=== PATIENT | female | born 1940 | race Caucasian/White ===

== ENCOUNTER 2021-01-03 12:36 | Emergency (ER) | payer MEDICARE ==
[~2021-01-03 12:36] MED LIST: CIPRO HC OTIC S10 ML EARRT; COLACE 100MG C100 MG PO; ECOTRIN81 MG PO; FENOFIBRATE160 MG PO; FEOSOL325 MG PO; GABAPENTIN300 MG PO; GLUCOPHAGE1000 MG PO; HAIR, SKIN & N1 EACH PO; IMDUR ER TAB 6060 MG PO; JANUVIA100 MG PO; NORVASC10 MG PO; OMEPRAZOLE20 M1 PO; TOPROL XL100 MG PO; TRESIBA100 UNIT/1 SQ; ULTRAM50 MG PO; ZYRTEC10 MG PO
[2021-01-03 14:39] LABS: HEMOGLOBIN 15.1 gm/dl (12.3-15.3); RED BLOOD COUNT 4.81 M/UL (4.00-5.10); WHITE BLOOD COUNT 9.5 K/UL (4.5-11.0)
[2021-01-03 16:14] LABS: BUN/CREATININE RATIO 16 (0-10)
[2021-01-03] MEDS ORDERED: COLACE100 MG PO (19:00)
[2021-01-03] MEDS ORDERED: ULTRAM50 MG PO (19:00)
[2021-01-07] MEDS ORDERED: BENTYL 20MG TAB20 MG PO (03:24)
[2021-01-07] MEDS ORDERED: LEVOTHYROXINE150 MCG PO (03:31)
[2021-01-07] MEDS ORDERED: HYZAAR 100-251 EACH PO (07:37)
[2021-01-07] MEDS ORDERED: LIPITOR20 MG PO (07:43)
[2021-01-07] MEDS ORDERED: VITAMIN D325 MCG PO (07:49)
[2021-01-07] MEDS ORDERED: HYDRALAZINE HCL25 MG PO ×2 (08:01→15:05)
== END 2021-01-03 19:45 | disposition home or self-care (01) ==
LOC: ER1 12:36
PROVIDERS: Physician Assistant Medical
DX: R10.9 Unspecified abdominal pain (principal); R11.2 Nausea with vomiting, unspecified; M54.9 Dorsalgia, unspecified; E11.9 Type 2 diabetes mellitus without complications; E78.5 Hyperlipidemia, unspecified; E03.9 Hypothyroidism, unspecified; Z90.710 Acquired absence of both cervix and uterus; Z87.19 Personal history of other diseases of the digestive system
CPT/HCPCS: 80053; 81001; 83605; 85025; 96374; 96375; 99284; J2270; J2405; Q9967

== ENCOUNTER 2021-01-07 10:47 | Inpatient (IN) | payer MEDICARE ==
[~2021-01-07] VITALS: Ht 165.1 cm; Wt 74.4 kg
[~2021-01-07 10:47] MED LIST changes: +BENTYL 20MG TAB20 MG PO; +COLACE100 MG PO; +HYDRALAZINE HCL25 MG PO; +HYZAAR 100-251 EACH PO; +LEVOTHYROXINE150 MCG PO; +LIPITOR20 MG PO; +VITAMIN D325 MCG PO
[2021-01-07 11:42] LABS: HEMOGLOBIN 14.8 gm/dl (12.3-15.3); RED BLOOD COUNT 4.74 M/UL (4.00-5.10); WHITE BLOOD COUNT 9.5 K/UL (4.5-11.0)
[2021-01-07 12:38] LABS: BUN/CREATININE RATIO 15 (0-10)
[2021-01-07] MEDS ORDERED: DESYREL 50 MG T50 MG PO (14:06)
[2021-01-07] MEDS ORDERED: K-TAB ER10 MEQ PO (14:07)
[2021-01-07] MEDS ORDERED: LEVOCETIRIZINE D5 MG PO (14:08)
[2021-01-07] MEDS ORDERED: AZELASTINE137 MCG/0. (14:10)
[2021-01-07] MEDS ORDERED: LANTUS100 UNIT/1 SC (14:57)
[2021-01-07] MEDS ORDERED: NITROSTAT 0.40.4 MG SL (14:58)
[2021-01-07] MEDS ORDERED: CO Q-10100 MG PO (14:58)
[2021-01-07] MEDS ORDERED: MAGNESIUM250 M1 PO (14:59)
[2021-01-07] MEDS ORDERED: HYDROCHLOROTHIA25 MG PO (14:59)
[2021-01-07] MEDS ORDERED: HYDRALAZINE HCL25 MG PO (15:05)
[2021-01-07 22:06] LABS: BUN/CREATININE RATIO 14 (0-10)
[2021-01-08 05:21] LABS: HEMOGLOBIN 13.2 gm/dl (12.3-15.3); WHITE BLOOD COUNT 9.7 K/UL (4.5-11.0)
[2021-01-08 05:41] LABS: RED BLOOD COUNT 4.25 M/UL (4.00-5.10)
[2021-01-08 05:42] LABS: BUN/CREATININE RATIO 15 (0-10)
[2021-01-08 11:03] LABS: BUN/CREATININE RATIO 15 (0-10)
[2021-01-08 12:03] LABS: BUN/CREATININE RATIO 13 (0-10)
[2021-01-08 14:45] LABS: BUN/CREATININE RATIO 16 (0-10)
[2021-01-08 16:41] LABS: BUN/CREATININE RATIO 14 (0-10)
--- NOTE | 2021-01-08 18:06 | NUR ---
REPORT TO MICHAEL GOING TO ROOM [id number]
[2021-01-08 19:21] LABS: BUN/CREATININE RATIO 14 (0-10)
[2021-01-08 21:47] LABS: BUN/CREATININE RATIO 12 (0-10)
[2021-01-09 00:23] LABS: BUN/CREATININE RATIO 11 (0-10)
[2021-01-09 04:06] LABS: BUN/CREATININE RATIO 12 (0-10)
[2021-01-09 08:34] LABS: BUN/CREATININE RATIO 12 (0-10)
--- NOTE | 2021-01-09 10:24 | NUR ---
NOTIFIED CHARLY ABARCA OF 2ND TOE ON RIGHT FOOT BRUISED. PATIENT DENIES COMPLAINTS WITH PAIN. NO NEW ORDERS.
--- NOTE | 2021-01-09 14:34 | NUR ---
1400- NOTIFIED DR CHU OF PATIENT HAVING NEAR FALL. DAUGHTER STATED WAS TALKING PATIENT TO BATHROOM AND HER KNEE BUCKLED AND ALMOST FELL. NEW ORDER FOR PT TO EVAL AND TREAT.
[2021-01-09] MEDS ORDERED: COZAAR 50MG TAB50 MG PO (16:08)
[2021-01-10 04:29] LABS: HEMOGLOBIN 13.2 gm/dl (12.3-15.3); RED BLOOD COUNT 4.3 M/UL (4.00-5.10); WHITE BLOOD COUNT 11.5 K/UL (4.5-11.0)
[2021-01-10 04:56] LABS: BUN/CREATININE RATIO 13 (0-10)
== END 2021-01-10 15:02 | disposition home or self-care (01) | DRG 641 ==
LOC: ER1 10:47 → PROG CARE 13:36 → CDU 13:36 → PROG CARE 19:52 → MED SURG 4 01-08 18:41
PROVIDERS: Emergency Medicine; Internal Medicine Nephrology; Physician Assistant; ADMIT Internal Medicine
DX: E87.1 Hypo-osmolality and hyponatremia (principal); R10.9 Unspecified abdominal pain; I16.0 Hypertensive urgency; N26.1 Atrophy of kidney (terminal); N28.81 Hypertrophy of kidney; E11.9 Type 2 diabetes mellitus without complications; I25.10 Atherosclerotic heart disease of native coronary artery without angina pectoris; E03.9 Hypothyroidism, unspecified; K57.90 Diverticulosis of intestine, part unspecified, without perforation or abscess without bleeding; K59.00 Constipation, unspecified; E86.0 Dehydration; E87.6 Hypokalemia; I10 Essential (primary) hypertension; E78.5 Hyperlipidemia, unspecified; Z20.822 Contact with and (suspected) exposure to COVID-19; R63.1 Polydipsia; M25.562 Pain in left knee; M25.561 Pain in right knee; Z90.710 Acquired absence of both cervix and uterus; Z79.4 Long term (current) use of insulin; Z88.8 Allergy status to other drugs, medicaments and biological substances; Z59.0 Homelessness; Z82.49 Family history of ischemic heart disease and other diseases of the circulatory system; Z83.3 Family history of diabetes mellitus; Z80.9 Family history of malignant neoplasm, unspecified
CPT/HCPCS: 0240U; 36415; 71045; 80048; 80053; 81001; 82533; 82550; 82553; 82962; 83605; 83690; 83735; 83880; 84439; 84443; 84484; 85025; 87086; 93005; 97116; 97161; 99285; J0360; J2270; J2405; J3480; J7030; J7131

== ENCOUNTER → 2021-01-21 | Outpatient (CLI) | payer MEDICARE ==
[~2021-01-21] MED LIST changes: +AZELASTINE137 MCG/0.; +CO Q-10100 MG PO; +COZAAR 50MG TAB50 MG PO; +DESYREL 50 MG T50 MG PO; +HYDROCHLOROTHIA25 MG PO; +K-TAB ER10 MEQ PO; +LANTUS100 UNIT/1 SC; +LEVOCETIRIZINE D5 MG PO; +MAGNESIUM250 M1 PO; +NITROSTAT 0.40.4 MG SL
== END ==
LOC: KOH-I 09:22
DX: M79.671 Pain in right foot (principal); S92.341A Displaced fracture of fourth metatarsal bone, right foot, initial encounter for closed fracture; S92.351A Displaced fracture of fifth metatarsal bone, right foot, initial encounter for closed fracture; M77.31 Calcaneal spur, right foot
CPT/HCPCS: 73630

== ENCOUNTER → 2021-02-28 | Outpatient (CLI) | payer MEDICARE | LOC: KOH-I 13:12 | DX: S92.341A Displaced fracture of fourth metatarsal bone, right foot, initial encounter for closed fracture (principal); S92.351A Displaced fracture of fifth metatarsal bone, right foot, initial encounter for closed fracture | CPT/HCPCS: 73630 ==

== ENCOUNTER → 2021-03-31 | Outpatient (CLI) | payer MEDICARE | LOC: KOH-I 13:23 | DX: S92.341A Displaced fracture of fourth metatarsal bone, right foot, initial encounter for closed fracture (principal); S92.351A Displaced fracture of fifth metatarsal bone, right foot, initial encounter for closed fracture | CPT/HCPCS: 73630 ==

== ENCOUNTER → 2021-04-15 | Outpatient (CLI) | payer MEDICARE | LOC: MAMO 10:30 | DX: Z12.31 Encounter for screening mammogram for malignant neoplasm of breast (principal) | CPT/HCPCS: 77063; 77067 ==

== ENCOUNTER 2022-01-25 13:19 | Inpatient (IN) | payer MEDICARE ==
[~2022-01-25] VITALS: Ht 165.1 cm; Wt 77.1 kg
[~2022-01-25 13:19] MED LIST changes: -LANTUS100 UNIT/1 SC; -LEVOTHYROXINE150 MCG PO; +LEVOTHYROXINE88 MCG PO; -NORVASC10 MG PO; +NORVASC5 MG PO; +NOVOLOG FL100 UNIT/1 SQ; +VITAMIN D21250 MCG PO; -VITAMIN D325 MCG PO; -ZYRTEC10 MG PO
[2022-01-25 13:45] LABS: HEMOGLOBIN 14.6 gm/dl (12.3-15.3); RED BLOOD COUNT 4.69 M/UL (4.00-5.10); WHITE BLOOD COUNT 8.5 K/UL (4.5-11.0)
[2022-01-25 14:21] LABS: BUN/CREATININE RATIO 29 (0-10)
[2022-01-25] MEDS ORDERED: LOSARTAN-HCTZ1 EAC1 PO (16:55)
[2022-01-25] MEDS ORDERED: KLOR-CON M2020 MEQ PO (16:57)
[2022-01-25] MEDS ORDERED: FARXIGA5 MG PO (16:58)
[2022-01-25] MEDS ORDERED: VITAMIN C500 M4 PO (16:58)
[2022-01-25] MEDS ORDERED: SPIRONOLACTONE25 MG PO (16:58)
[2022-01-25] MEDS ORDERED: BENADRYL ALLERG25 MG PO (16:59)
[2022-01-26 02:03] LABS: HEMOGLOBIN 14.9 gm/dl (12.3-15.3); RED BLOOD COUNT 4.83 M/UL (4.00-5.10)
[2022-01-26 02:36] LABS: BUN/CREATININE RATIO 24 (0-10)
[2022-01-27 06:42] LABS: HEMOGLOBIN 15.2 gm/dl (12.3-15.3); RED BLOOD COUNT 4.91 M/UL (4.00-5.10); WHITE BLOOD COUNT 10.4 K/UL (4.5-11.0)
[2022-01-27 07:06] LABS: BUN/CREATININE RATIO 30 (0-10)
[2022-01-27] MEDS ORDERED: ELIQUIS 2.5 MG2.5 MG PO (09:14)
[2022-01-28 06:43] LABS: RED BLOOD COUNT 4.83 M/UL (4.00-5.10)
[2022-01-28 06:57] LABS: BUN/CREATININE RATIO 32 (0-10)
[2022-01-29 06:59] LABS: HEMOGLOBIN 14.2 gm/dl (12.3-15.3); RED BLOOD COUNT 4.58 M/UL (4.00-5.10); WHITE BLOOD COUNT 11.1 K/UL (4.5-11.0)
[2022-01-29 07:17] LABS: BUN/CREATININE RATIO 29 (0-10)
[2022-01-30 06:40] LABS: HEMOGLOBIN 14.7 gm/dl (12.3-15.3); RED BLOOD COUNT 4.7 M/UL (4.00-5.10); WHITE BLOOD COUNT 9.2 K/UL (4.5-11.0)
[2022-01-30 07:01] LABS: BUN/CREATININE RATIO 27 (0-10)
[2022-01-31 06:44] LABS: HEMOGLOBIN 13.6 gm/dl (12.3-15.3); RED BLOOD COUNT 4.45 M/UL (4.00-5.10)
[2022-01-31 07:35] LABS: BUN/CREATININE RATIO 23 (0-10)
[2022-01-31] MEDS ORDERED: VOLTAREN ARTHRI20 GM TP (11:52)
== END 2022-01-31 15:54 | disposition home health service (06) | DRG 65 ==
LOC: ER1 13:19 → CDU 16:18 → MED SURG 4 16:18
PROVIDERS: Family Medicine; ADMIT Internal Medicine
PROC: B24BZZZ Ultrasonography of Heart with Aorta (ICD-10-PCS; principal; 2022-01-26)
DX: I63.9 Cerebral infarction, unspecified (principal); Z20.822 Contact with and (suspected) exposure to COVID-19; E87.1 Hypo-osmolality and hyponatremia; G81.94 Hemiplegia, unspecified affecting left nondominant side; I10 Essential (primary) hypertension; R29.810 Facial weakness; E87.6 Hypokalemia; E83.42 Hypomagnesemia; R47.1 Dysarthria and anarthria; R47.81 Slurred speech; E03.9 Hypothyroidism, unspecified; E11.65 Type 2 diabetes mellitus with hyperglycemia; I16.0 Hypertensive urgency; I25.10 Atherosclerotic heart disease of native coronary artery without angina pectoris; Z79.4 Long term (current) use of insulin; Z79.82 Long term (current) use of aspirin; Z95.5 Presence of coronary angioplasty implant and graft; Z90.710 Acquired absence of both cervix and uterus; Z88.8 Allergy status to other drugs, medicaments and biological substances
CPT/HCPCS: ECHO; 36415; 70450; 70496; 70498; 70551; 71045; 80048; 80053; 80061; 82533; 82550; 82553; 82962; 83036; 83735; 84132; 84439; 84443; 84484; 85025; 85027; 85610; 85730; 92507; 92526; 92610; 93005; 93306; 97110-GP-CQ; 97112; 97116-GP-CQ; 97162; 97166; 97530; 97535; 99285; G0378; J0360; J1650; Q9967